=== PATIENT | female | born 1965 | race Caucasian/White ===

== ENCOUNTER → 2019-01-26 | Outpatient (CLI) | payer SELFPAY ==
[~2019-01-26] MED LIST: IBUP400 PO; IBUP800 PO; METCAR750 PO; NAPR500 PO; Norco 5-325 Ta1 EACH PO; OXYACE7.5T PO; PENVK250 PO; Pepcid20 MG PO; Valium5 MG PO
[2019-01-26 10:21] LABS: Adenovirus F 40/41 Not Detected (NOT DETECT); Astrovirus Not Detected (NOT DETECT); Campylobacter Sp Not Detected (NOT DETECT); Cryptosporidium Not Detected (NOT DETECT); Cyclospora Cayetanensis Not Detected (NOT DETECT); E. Coli O157 Not Detected (NOT DETECT); Entamoeba Histolytica Not Detected (NOT DETECT); Enteroaggregative E. coli-EAEC Not Detected (NOT DETECT); Enteropathogenic E. coli-EPEC Not Detected (NOT DETECT); Enterotoxigenic E. coli-ETEC Not Detected (NOT DETECT); Giardia Lamblia Not Detected (NOT DETECT); Norovirus GI/GII Not Detected (NOT DETECT); Plesiomonas Shigelloides Not Detected (NOT DETECT); Rotavirus A Not Detected (NOT DETECT); Salmonella Sp Not Detected (NOT DETECT); Sapovirus Not Detected (NOT DETECT); Shiga Toxin-prod E. coli-STEC Not Detected (NOT DETECT); Shigella/Enteroin E. coli-EIEC Not Detected (NOT DETECT); Vibrio Cholerae Not Detected (NOT DETECT); Vibrio Sp Not Detected (NOT DETECT); Yersinia Enterocolitica Not Detected (NOT DETECT)
[2019-01-26 13:26] LABS: Stool Occult Bld Immuno 1 Positive (NEGATIVE)
== END | disposition home or self-care (01) ==
LOC: LAB EV 06:00
PROVIDERS: Physician Assistant
DX: R19.7 Diarrhea, unspecified (principal)
CPT/HCPCS: 0097U; 82274

== ENCOUNTER 2020-04-09 09:16 | Emergency (ER) | payer BC, SELFPAY ==
[~2020-04-09] VITALS: Ht 177.8 cm; Wt 70.8 kg
[2020-04-09] MEDS ORDERED: ENDOCET 7.5-321 EACH PO (09:47)
[2020-04-09 10:42] LABS: BASOPHILS ABSOLUTE AUTO 0.06 K/mm3 (0.00-0.23); BASOPHILS PERCENT AUTO 1 % (0-2); EOSINOPHILS ABSOLUTE AUTO 0.13 K/mm3 (0.00-0.68); EOSINOPHILS PERCENT AUTO 2 % (0-6); Hematocrit 42.3 % (33.0-51.0); Hemoglobin 14.1 g/dL (11.5-16.0); IMMATURE GRAN ABSOLUTE AUTO 0.03 K/mm3 (0.00-0.10); IMMATURE GRAN PERCENT AUTO 0 % (0-1); LYMPHOCYTES ABSOLUTE AUTO 1.79 K/mm3 (0.84-5.20); LYMPHOCYTES PERCENT AUTO 20 % (21-46); MONOCYTES ABSOLUTE AUTO 0.78 K/mm3 (0.16-1.47); MONOCYTES PERCENT AUTO 9 % (4-13); Mean Corpuscular HGB 32.9 pg (26.0-34.0); Mean Corpuscular HGB Conc 33.3 g/dL (31.5-36.5); Mean Corpuscular Volume 99 fL (80-100); Mean Platelet Volume 9.3 fL (9.1-12.4); NEUTROPHILS ABSOLUTE AUTO 6.13 K/mm3 (1.96-9.15); NEUTROPHILS PERCENT AUTO 69 % (41-73); Platelet Count 282 K/mm3 (150-400); RDW Coefficient Variation 13.7 % (11.7-14.2); RDW Standard Deviation 49.9 fL (35.1-46.3); Red Blood Cell Count 4.29 M/mm3 (3.80-5.20); White Blood Cell Count 8.92 K/mm3 (4.00-11.30)
[2020-04-09 10:59] LABS: Alanine Aminotransfer (ALT/SGP 26 U/L (12-78); Albumin, Blood 3.6 g/dL (3.4-5.0); Albumin/Globulin Ratio 1.1 (0.8-1.8); Alk Phos 64 U/L (50-136); Anion Gap 5 mmol/L (6-16); Aspartate Aminotrans (AST/SGOT 13 U/L (12-37); Bilirubin, Total 0.6 mg/dL (0.1-1.0); Blood Urea Nitrogen 13 mg/dL (8-24); Bun/Creatinine Ratio 21.8 (12.0-20.0); CO2, Blood 27 mmol/L (21-32); Calcium, Blood 8.8 mg/dL (8.5-10.1); Chloride, Blood 112 mmol/L (98-108); Globulin, Blood 3.4 g/dL (2.2-4.0); Glomerular Filtration Rate >60 (60-); Glucose, Blood 95 mg/dL (70-99); Potassium, Blood 4.2 mmol/L (3.5-5.5); Sodium, Blood 144 mmol/L (136-145)
[2020-04-09] MEDS ORDERED: Mobic15 MG PO (11:36)
[2020-04-09] MEDS ORDERED: Prednisone20 MG PO (11:36)
[2020-04-09] MEDS ORDERED: Roxicodone5 MG PO (11:46)
[2020-04-11 14:08] LABS: ANA DIRECT Negative (Negative)
[2020-07-25] MEDS ORDERED: HYDACE10B PO (17:48)
[2020-07-26] MEDS ORDERED: HYDACE10B PO (17:21)
== END 2020-04-09 12:11 | disposition home or self-care (01) ==
LOC: ER 09:16
PROVIDERS: Physician Assistant
DX: M13.811 Other specified arthritis, right shoulder (principal); M25.562 Pain in left knee; M25.561 Pain in right knee; R22.33 Localized swelling, mass and lump, upper limb, bilateral; F17.210 Nicotine dependence, cigarettes, uncomplicated; Z88.0 Allergy status to penicillin; Z79.52 Long term (current) use of systemic steroids
CPT/HCPCS: 36415; 80053; 85025; 85651; 86038; 86430; 96374; 96375; 99283-25; J1885; J2930

== ENCOUNTER 2020-07-23 08:08 | Emergency (ER) | payer BC ==
[~2020-07-23] VITALS: Ht 177.8 cm; Wt 70.3 kg
[~2020-07-23 08:08] MED LIST changes: +ENDOCET 7.5-321 EACH PO; +Mobic15 MG PO; +Prednisone20 MG PO; +Roxicodone5 MG PO
[2020-07-23] MEDS ORDERED: NAPR500 PO (09:57)
[2020-07-23] MEDS ORDERED: HYDACE10B PO (09:57)
[2020-07-25] MEDS ORDERED: HYDACE10B PO (17:48)
[2020-07-26] MEDS ORDERED: HYDACE10B PO (17:21)
== END 2020-07-23 10:36 | disposition home or self-care (01) ==
LOC: ER 08:08
DX: M06.9 Rheumatoid arthritis, unspecified (principal); F17.210 Nicotine dependence, cigarettes, uncomplicated; Z88.0 Allergy status to penicillin; Z79.52 Long term (current) use of systemic steroids
CPT/HCPCS: 96372; 99283-25; J1885

== ENCOUNTER 2020-09-07 02:41 | Day surgery (SDC) | payer BC, OTHER ==
[~2020-09-07] VITALS: Wt 73.6 kg
[~2020-09-07 02:41] MED LIST changes: +HYDACE10B PO
[2020-09-07] MEDS ORDERED: OXYCODONE-ACET1 EAC2 PO (09:24)
[2020-09-07] MEDS ORDERED: METHOTREXATE2.5 M3 PO (09:25)
[2020-09-07] MEDS ORDERED: PRED5 PO (09:26)
[2020-09-07] MEDS ORDERED: GABA100 PO (09:26)
[2020-09-07] MEDS ORDERED: FOLI1 PO (09:27)
== END 2020-09-07 09:48 | disposition home or self-care (01) ==
LOC: ATC 02:41
DX: M06.09 Rheumatoid arthritis without rheumatoid factor, multiple sites (principal); F17.200 Nicotine dependence, unspecified, uncomplicated; Z79.52 Long term (current) use of systemic steroids; Z79.899 Other long term (current) drug therapy; Z88.5 Allergy status to narcotic agent; Z88.0 Allergy status to penicillin
CPT/HCPCS: 96365; J1602

== ENCOUNTER 2020-10-05 00:02 | Day surgery (SDC) | payer BC, OTHER ==
[~2020-10-05 00:02] MED LIST changes: +FOLI1 PO; +GABA100 PO; +METHOTREXATE2.5 M3 PO; +OXYCODONE-ACET1 EAC2 PO; +PRED5 PO
== END 2020-10-05 09:45 | disposition home or self-care (01) ==
LOC: ATC 00:02
DX: M06.09 Rheumatoid arthritis without rheumatoid factor, multiple sites (principal); Z88.0 Allergy status to penicillin; Z88.5 Allergy status to narcotic agent; Z87.891 Personal history of nicotine dependence
CPT/HCPCS: 96365; J1602

== ENCOUNTER 2020-12-28 03:00 | Day surgery (SDC) | payer BC, OTHER ==
[2020-12-28] MEDS ORDERED: SIMPONI AR50 MG/4 M1 IV (14:50)
== END 2020-12-28 15:07 | disposition home or self-care (01) ==
LOC: ATC 03:00
DX: M06.9 Rheumatoid arthritis, unspecified (principal); Z88.0 Allergy status to penicillin; Z88.1 Allergy status to other antibiotic agents
CPT/HCPCS: 96365; J1602

== ENCOUNTER 2021-04-26 01:15 | Day surgery (SDC) | payer BC, OTHER ==
[~2021-04-26] VITALS: Wt 69.2 kg
[~2021-04-26 01:15] MED LIST changes: +SIMPONI AR50 MG/4 M1 IV
== END 2021-04-26 09:44 | disposition home or self-care (01) ==
LOC: ATC 01:15
DX: M06.09 Rheumatoid arthritis without rheumatoid factor, multiple sites (principal); Z88.0 Allergy status to penicillin; Z79.899 Other long term (current) drug therapy
CPT/HCPCS: J1602

== ENCOUNTER 2021-06-21 00:54 | Day surgery (SDC) | payer BC, OTHER ==
[~2021-06-21] VITALS: Wt 68.9 kg
== END 2021-06-21 09:40 | disposition home or self-care (01) ==
LOC: ATC 00:54
DX: M06.09 Rheumatoid arthritis without rheumatoid factor, multiple sites (principal); F17.210 Nicotine dependence, cigarettes, uncomplicated; Z88.0 Allergy status to penicillin; Z88.5 Allergy status to narcotic agent
CPT/HCPCS: J1602

== ENCOUNTER 2021-10-26 01:50 | Day surgery (SDC) | payer BC, OTHER ==
[~2021-10-26] VITALS: Wt 65.1 kg
--- NOTE | 2021-10-26 13:31 | NUR ---
UNABLE TO GET ENOUGH BLOOD RETURN FROM [facility] TODAY FOR LABS. 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 CALLED THE OFFICE AND THEY SAID THEY WOULD REVIEW HER CHART AND CONTACT HER IF THEY WANT THE LABS DRAWN PRIOR TO HER NEXT APPT
== END 2021-10-26 10:11 | disposition home or self-care (01) ==
LOC: ATC 01:50
DX: M06.09 Rheumatoid arthritis without rheumatoid factor, multiple sites (principal); Z87.891 Personal history of nicotine dependence; Z88.0 Allergy status to penicillin; Z88.5 Allergy status to narcotic agent
CPT/HCPCS: 96365; J1602

== ENCOUNTER 2022-02-15 00:46 | Day surgery (SDC) | payer BC, OTHER ==
[~2022-02-15] VITALS: Wt 67.4 kg
== END 2022-02-15 09:55 | disposition home or self-care (01) ==
LOC: ATC 00:46
DX: M06.9 Rheumatoid arthritis, unspecified (principal); F17.210 Nicotine dependence, cigarettes, uncomplicated
CPT/HCPCS: 96365; J1602

== ENCOUNTER 2022-04-12 00:45 | Day surgery (SDC) | payer BC, OTHER ==
[~2022-04-12] VITALS: Wt 68.5 kg
== END 2022-04-12 09:28 | disposition home or self-care (01) ==
LOC: ATC 00:45
DX: M06.09 Rheumatoid arthritis without rheumatoid factor, multiple sites (principal); Z87.891 Personal history of nicotine dependence; Z88.1 Allergy status to other antibiotic agents; Z88.5 Allergy status to narcotic agent
CPT/HCPCS: 96365; J1602

== ENCOUNTER 2022-05-07 05:58 | Emergency (ER) | payer OTHER ==
[~2022-05-07] VITALS: Ht 177.8 cm; Wt 65.8 kg
[2022-05-07] MEDS ORDERED: LEFL20 PO (06:37)
[2022-05-07] MEDS ORDERED: Neurontin 300300 MG PO (07:44)
[2022-05-07] MEDS ORDERED: DULO30 PO (07:44)
== END 2022-05-07 07:57 | disposition home or self-care (01) ==
LOC: ER 05:58
DX: G89.29 Other chronic pain (principal); M79.602 Pain in left arm; M79.601 Pain in right arm; M54.2 Cervicalgia; Z88.0 Allergy status to penicillin; Z79.899 Other long term (current) drug therapy; F17.210 Nicotine dependence, cigarettes, uncomplicated
CPT/HCPCS: 72040

== ENCOUNTER 2022-06-07 00:44 | Day surgery (SDC) | payer OTHER ==
[~2022-06-07 00:44] MED LIST changes: +DULO30 PO; +LEFL20 PO; +Neurontin 300300 MG PO
== END 2022-06-07 22:41 | disposition home or self-care (01) ==
LOC: ATC 00:44
DX: M06.09 Rheumatoid arthritis without rheumatoid factor, multiple sites (principal); G89.29 Other chronic pain; Z88.0 Allergy status to penicillin; Z88.1 Allergy status to other antibiotic agents; Z79.899 Other long term (current) drug therapy
CPT/HCPCS: J1602

== ENCOUNTER 2022-06-14 02:11 | Day surgery (SDC) | payer BC, OTHER | END 2022-06-14 12:00 | disposition home or self-care (01) | LOC: ATC 02:11 | DX: M06.09 Rheumatoid arthritis without rheumatoid factor, multiple sites (principal); Z88.0 Allergy status to penicillin; F17.210 Nicotine dependence, cigarettes, uncomplicated | CPT/HCPCS: 96365; J1602 ==

== ENCOUNTER → 2024-04-23 | Outpatient (CLI) | payer OTHER ==
[2024-04-29 02:32] LABS: HPV HIGH RISK BY TMA Not Detected; HPV SOURCE Cervical
== END ==
LOC: LAB 11:00 → LAB SHORT 11:00
PROVIDERS: Obstetrics & Gynecology
DX: Z01.419 Encounter for gynecological examination (general) (routine) without abnormal findings (principal)
CPT/HCPCS: 87624; G0123